=== PATIENT | female | born 1985 | race Caucasian/White ===

== ENCOUNTER 2017-10-12 13:17 | Emergency (ER) | payer OTHER ==
[~2017-10-12] VITALS: Ht 162.6 cm; Wt 62.6 kg
[~2017-10-12 13:17] MED LIST: ENDOCET 5-3251 EACH PO; FLINTSTONES GU1 EACH PO; IBUPROFEN800 MG PO; KEFLEX500 MG PO; NO HOME MEDS; OXYCODONE-APAP1 EACH PO; PNV-OB WITH DH1 EACH PO; PRENATA CHEWAB1 EACH PO; PRENATAL TABLE1 EAC3 PO; ZOFRAN ODT4 MG PO; ZOFRAN4 MG PO
[2017-10-12 13:47] VITALS: BP 129/81
[2017-10-12] MEDS ORDERED: BACTROBAN OINTM22 GM TP (15:03)
[2017-10-12] MEDS ORDERED: NAPROSYN500 MG PO (15:03)
[2017-10-12] MEDS ORDERED: KEFLEX500 MG PO (15:03)
== END 2017-10-12 15:25 | disposition home or self-care (01) ==
LOC: EME 13:17
DX: L73.9 Follicular disorder, unspecified (principal); F17.200 Nicotine dependence, unspecified, uncomplicated
CPT/HCPCS: 99281; 99283